=== PATIENT | male | born 1995 | race Caucasian/White ===

== ENCOUNTER → 2017-04-10 | Outpatient (CLI) | payer BC ==
--- NOTE | 2017-04-10 13:29 | DIAGNOSTIC IMAGING REPORT ---
ULTRASOUND LEFT GROIN NONVASCULAR CLINICAL HISTORY: Left groin pain. FINDINGS: Real-time grayscale sonography of the left groin is performed to assess for hernia. There is no sonographic evidence of left inguinal hernia. No hernia could be elicited by having the patient perform the Valsalva maneuver. No left inguinal adenopathy is seen. IMPRESSION: There is no sonographic evidence of left inguinal hernia as clinically queried. Electronically signed by: Spike Huerta M.D. 04/10/2017 1:28 PM Dictated Date/Time: 04/10/2017 1:27 PM
== END | disposition home or self-care (01) ==
LOC: C.ULTR 12:50
PROVIDERS: ATTEND Surgery
DX: R10.30 Lower abdominal pain, unspecified (principal)